=== PATIENT | female | born 1935 | race Hispanic/Latino ===

== ENCOUNTER 2017-09-20 07:49 | Inpatient (IN) | payer OTHER, MEDICARE ==
[2017-09-20] VITALS (21 sets, daily range): BP systolic 102–162; BP diastolic 46–69
[~2017-09-20] VITALS: Ht 157.5 cm; Wt 49.9 kg
[~2017-09-20 07:49] MED LIST: CITA10TA7 PO; DONE5TAB33 PO; HYDR-3421 PO
[2017-09-20 08:41] LABS: BASOPHILS % (AUTO) 0.6 % (0.0-5.0); EOSINOPHILS % (AUTO) 0.7 % (0.0-8.0); HEMATOCRIT 33.3 % (36-48); LYMPHOCYTES % (AUTO) 9.7 % (21.0-51.0); MEAN CORPUSCULAR HEMOGLOBIN 29.6 pg (27.0-33.0); MEAN CORPUSCULAR HGB CONC 34.9 g/dL (32.0-36.0); MEAN CORPUSCULAR VOLUME 84.7 fL (79-99); MONOCYTES % (AUTO) 8.3 % (3.0-13.0); NEUTROPHILS % (AUTO) 80.7 % (40.0-77.0); PLATELET COUNT (AUTO) 231 K/uL (130-400); RED BLOOD CELL COUNT(AUTO) 3.93 MIL/uL (4.00-5.50); RED CELL DISTRIBUTION WIDTH 15.1 % (11.0-15.5); WHITE BLOOD COUNT (AUTO) 6.8 K/uL (4.8-10.8)
[2017-09-20 08:48] LABS: CREATININE 0.6 mg/dL (0.5-1.5); POTASSIUM 3.1 mmol/L (3.5-5.1)
[2017-09-20 08:57] LABS: INR 1.01 (0.85-1.15); PARTIAL THROMBOPLASTIN TIME 26.6 SEC (26.3-35.5); PROTHROMBIN TIME 10.6 SEC (9.6-11.6)
[2017-09-20] MEDS ORDERED: POTASSIUM BICARB/CIT AC 25 MEQ TABLET.EFF ONE (09:31)
[2017-09-20] MEDS ORDERED: MORPHINE SULFATE 2 MG/ML 1ML SYG IV PRN (11:00)
[2017-09-20] MEDS ORDERED: MAG HYDROX/AL HYDROX/SIMETH ES 30 ML SUSP UDCUP PO PRN (11:00)
[2017-09-20] MEDS ORDERED: ONDANSETRON HCL 4 MG/2 ML VIAL IV PRN (11:00)
[2017-09-20] MEDS ORDERED: ACETAMINOPHEN-CODEINE 300/30MG TAB PO PRN ×2 (11:00)
[2017-09-20] MEDS ORDERED: NITROGLYCERIN 0.4 MG SL TAB SL PRN (11:00)
[2017-09-20] MEDS ORDERED: LACTULOSE 20 GM/30 ML UDCUP PO PRN (11:00)
[2017-09-20] MEDS ORDERED: GUAIFENESIN-DM 200/20 MG 10 ML PO PRN (11:00)
[2017-09-20] MEDS ORDERED: ACETAMINOPHEN 325 MG TAB PO PRN ×2 (11:00)
[2017-09-20] MEDS ORDERED: HYDRALAZINE HCL 20 MG/ML VIAL IV PRN (11:00)
[2017-09-20] MEDS ORDERED: MORPHINE SULFATE 4 MG/1ML SYG IV PRN (11:00)
[2017-09-20] MEDS ORDERED: ACET325T51 PO (13:12)
[2017-09-20] MEDS ORDERED: GUAI-966 PO (13:12)
[2017-09-20] MEDS ORDERED: MEMA5TAB15 PO (13:12)
[2017-09-20] MEDS ORDERED: LORA10TA7 PO (13:12)
[2017-09-20] MEDS ORDERED: POTASSIUM CHLORIDE 20MEQ/100ML 100 ML IV PRN ×2 (14:00→19:30)
[2017-09-20] MEDS ORDERED: LIDOCAINE HCL-MPF 1% 2ML VIAL IVP PRN ×2 (14:00→19:30)
[2017-09-20] MEDS ORDERED: POTASSIUM CHLORIDE 10% ELIXIR 20 MEQ/15 ML UDCUP PO PRN ×2 (14:00→19:30)
[2017-09-20] MEDS ORDERED: POTASSIUM CHLORIDE 20 MEQ ERTAB PO PRN ×2 (14:00→19:30)
[2017-09-20] MEDS ORDERED: SODIUM CHLORIDE 0.9% 1000ML 1,000 ML IV ONE (14:35)
[2017-09-20] MEDS: SODIUM CHLORIDE 0.9% 1000ML 1,000 ML IV SCH ×3 (15:00→21:38)
[2017-09-20] MEDS ORDERED: LIDOCAINE HCL 4% LTA SOL 4 ML VIAL ONE (15:12)
[2017-09-20] MEDS ORDERED: ONDANSETRON HCL 4 MG/2 ML VIAL ONE (15:12)
[2017-09-20] MEDS ORDERED: GLYCOPYRROLATE 0.2 MG/ML 5 ML VIAL ONE (15:12)
[2017-09-20] MEDS ORDERED: ROCURONIUM BROMIDE 10MG/1ML 5ML VL ONE (15:12)
[2017-09-20] MEDS ORDERED: NEOSTIGMINE METHYLSULFATE 1MG/ML IV ONE (15:12)
[2017-09-20] MEDS ORDERED: LIDOCAINE HCL MPF 1% 5ML VIAL ONE (15:12)
[2017-09-20] MEDS ORDERED: LIDOCAINE HCL 2% JELLY 5 ML ONE (15:12)
[2017-09-20] MEDS ORDERED: DEXAMETHASONE SOD PHOSPHATE 10MG/ML 1ML VIAL ONE (15:12)
[2017-09-20] MEDS ORDERED: PHENYLEPHRINE HCL 10 MG/ML 1ML VIAL IV ONE (15:12)
[2017-09-20] MEDS ORDERED: LIDOCAINE PF 2% 5ML ABBOJECT ONE (15:12)
[2017-09-20] MEDS ORDERED: PROPOFOL 10 MG/ML 20ML VIAL IV ONE (15:12)
[2017-09-20] MEDS ORDERED: MIDAZOLAM HCL 1 MG/ML 2ML VIAL ONE (15:12)
[2017-09-20] MEDS ORDERED: FENTANYL CITRATE PF 50 MCG/1 ML 2ML VIAL ONE (15:13)
[2017-09-20] MEDS ORDERED: CLINDAMYCIN PHOSPHATE 150 MG/ML 6ML VIAL ONE (15:49)
[2017-09-20] MEDS ORDERED: CLINDAMYCIN 900 MG/D5% WATER 50 ML IV SCH (16:15)
[2017-09-20] MEDS ORDERED: FERROUS FUMARATE 324 MG TABLET PO PRN (19:30)
[2017-09-20] MEDS: DONEPEZIL HCL 5 MG TAB PO SCH (23:21)
[2017-09-20] MEDS: FAMOTIDINE 20MG TAB 20 MG TAB PO SCH (23:22)
[2017-09-20] MEDS: CITALOPRAM 20 MG TABLET PO SCH (23:22)
[2017-09-20] MEDS: MEMANTINE HCL 5 MG TABLET PO SCH (23:22)
[2017-09-20] MEDS: CLINDAMYCIN 900 MG/D5% WATER 50 ML IVPB SCH (23:23)
[2017-09-20] MEDS ORDERED: CLINDAMYCIN 900 MG/D5% WATER 50 ML IV ONE (23:23)
[2017-09-21 00:43] VITALS: BP 123/64
[2017-09-21 04:00] VITALS: BP 134/66
[2017-09-21] MEDS: SODIUM CHLORIDE 0.9% 1000ML 1,000 ML IV SCH ×3 (04:14→11:03)
[2017-09-21 05:14] LABS: HEMATOCRIT 31.7 % (36-48); MEAN CORPUSCULAR HEMOGLOBIN 28.8 pg (27.0-33.0); MEAN CORPUSCULAR HGB CONC 33.7 g/dL (32.0-36.0); MEAN CORPUSCULAR VOLUME 85.5 fL (79-99); PLATELET COUNT (AUTO) 223 K/uL (130-400); RED BLOOD CELL COUNT(AUTO) 3.71 MIL/uL (4.00-5.50); RED CELL DISTRIBUTION WIDTH 15.6 % (11.0-15.5); WHITE BLOOD COUNT (AUTO) 7.5 K/uL (4.8-10.8)
[2017-09-21 05:20] LABS: CREATININE 0.7 mg/dL (0.5-1.5); POTASSIUM 3.8 mmol/L (3.5-5.1)
[2017-09-21 06:39] LABS: APPEARANCE,URINE CLEAR (CLEAR); BILIRUBIN,URINE NEGATIVE (NEGATIVE); COLOR,URINE YELLOW (YELLOW); GLUCOSE, URINE (UA) NEGATIVE (NEGATIVE); KETONES,URINE 15 mg/dL (NEGATIVE); LEUKOCYTE ESTERASE ,URINE NEGATIVE (NEGATIVE); NITRATE,URINE NEGATIVE (NEGATIVE); OCCULT BLOOD,URINE TRACE-INTACT (NEGATIVE); PROTEIN,URINE NEGATIVE (NEGATIVE)
[2017-09-21 06:53] LABS: BACTERIA,URINE Rare /HPF (None Seen); MUCUS,URINE Rare LPF (None Seen); SQUAMOUS EPITHELIAL CELL,UR Rare /LPF (0-2); WBC,URINE 0-1 /HPF (0-1)
[2017-09-21 07:48] VITALS: BP 148/61
[2017-09-21] MEDS: CLINDAMYCIN 900 MG/D5% WATER 50 ML IVPB SCH (09:37)
[2017-09-21] MEDS: ENOXAPARIN SODIUM 40 MG/0.4 ML SYRINGE SQ SCH (09:37)
[2017-09-21] MEDS: FAMOTIDINE 20MG TAB 20 MG TAB PO SCH ×2 (09:37→20:19)
[2017-09-21] MEDS: LORATADINE 10 MG TABLET PO SCH (09:37)
[2017-09-21] MEDS: MEMANTINE HCL 5 MG TABLET PO SCH ×2 (09:37→20:19)
[2017-09-21 11:20] VITALS: BP 110/51
[2017-09-21] MEDS: PSYLLIUM SEED 1 EACH PACKET PO SCH (12:49)
[2017-09-21 16:17] VITALS: BP 122/62
[2017-09-21 20:00] VITALS: BP 103/59
[2017-09-21] MEDS: CITALOPRAM 20 MG TABLET PO SCH (20:19)
[2017-09-21] MEDS: DONEPEZIL HCL 5 MG TAB PO SCH (20:19)
[2017-09-22] VITALS: BP 109/52
[2017-09-22 04:00] VITALS: BP 114/54
[2017-09-22] MEDS: SODIUM CHLORIDE 0.9% 1000ML 1,000 ML IV SCH (04:04)
[2017-09-22 08:00] VITALS: BP 114/54
[2017-09-22] MEDS: LORATADINE 10 MG TABLET PO SCH (09:32)
[2017-09-22] MEDS: ENOXAPARIN SODIUM 40 MG/0.4 ML SYRINGE SQ SCH (09:32)
[2017-09-22] MEDS: MEMANTINE HCL 5 MG TABLET PO SCH (09:32)
[2017-09-22] MEDS: FAMOTIDINE 20MG TAB 20 MG TAB PO SCH (09:32)
[2017-09-22 12:00] VITALS: BP 119/56
[2017-09-22] MEDS: PSYLLIUM SEED 1 EACH PACKET PO SCH (12:08)
[2017-09-22 16:00] VITALS: BP 122/60
[2017-09-22] MEDS ORDERED: ENOX40DI8 SQ (18:49)
[2017-09-22] MEDS ORDERED: TYL3 PO (18:49)
[2017-09-22] MEDS ORDERED: BISACODYL 5 MG TABLET.DR PO PRN (19:30)
[2017-09-23] MEDS ORDERED: BISACODYL 10 MG SUPP.RECT RC PRN (19:30)
== END 2017-09-22 22:10 | DRG 480 ==
LOC: EDH 07:49 → EDHIP 09:48 → 4AH 11:16
PROVIDERS: ADMIT Internal Medicine; ATTEND Internal Medicine
PROC: 0QS606Z Reposition Right Upper Femur with Intramedullary Internal Fixation Device, Open Approach (ICD-10-PCS; principal; 2017-09-20 18:06)
DX: S72.141A Displaced intertrochanteric fracture of right femur, initial encounter for closed fracture (principal); E43 Unspecified severe protein-calorie malnutrition; E11.9 Type 2 diabetes mellitus without complications; G30.9 Alzheimer's disease, unspecified; F02.80 Dementia in other diseases classified elsewhere, unspecified severity, without behavioral disturbance, psychotic disturbance, mood disturbance, and anxiety; I10 Essential (primary) hypertension; F32.9 Major depressive disorder, single episode, unspecified; R53.81 Other malaise; W19.XXXA Unspecified fall, initial encounter; Y93.89 Activity, other specified; Y92.89 Other specified places as the place of occurrence of the external cause; Y99.8 Other external cause status
CPT/HCPCS: 36415; 71045; 73502; 73562; 73700; 76000; 80048; 81001; 82948; 85025; 85027; 85610; 85730; 86850; 86900; 86901; 93005; 97039; J1100; J1650; J2001; J2250; J2370; J2405; J2704; J2710; J3010; J3490; J7030